=== PATIENT | female | born 1975 | race Caucasian/White ===

== ENCOUNTER → 2018-05-12 | Outpatient (CLI) | END | disposition home or self-care (01) ==

== ENCOUNTER 2018-11-23 11:01 | Outpatient (CLI) | payer OTHER ==
[~2018-11-23] VITALS: Ht 160 cm; Wt 103.0 kg
[2018-11-23 11:39] VITALS: Ht 160 cm; Wt 103.0 kg
--- NOTE | 2018-11-23 12:11 | TRIAGE ---
OB Triage Datetime Report Generated by CPN: 11/23/2018 12:10 Datetime: 11/23/2018 11:59 Maternal Assessment Level of Consciousness: Fully Conscious DTR's/Clonus: DTRs 1+ Headache: Denies Blurred Vision: No Nausea/Vomiting: Denies RUQ Epigastric Pain: Denies Facial Edema: None Labor Evaluation Monitor Mode: External Resting Tone Crary: Relaxed Heart Rate FHR Baseline Rate: 120 Monitor Mode: External US Variability: Moderate 6-25 bpm Accelerations: 15X15 Decelerations: None Category: Category I Pain Assessment Pain Scale: 0 Pain Presence: None/Denies Pain Type: N/A Pain Goal: 3 Vaginal Exam Membrane Status: Intact Datetime: 11/23/2018 11:05 Stage of : OB Triage Assessment Type: Triage Maternal Assessment Level of Consciousness: Fully Conscious DTR's/Clonus: DTRs 2+; No Clonus Headache: Denies Blurred Vision: No Respiratory Effort: Unlabored; Regular Rhythm; Equal Expansion Breath Sounds, Left: Clear and Equal Breath Sounds, Right: Clear and Equal Nausea/Vomiting: Denies RUQ Epigastric Pain: Denies Lower Extremities Edema: None Degree: None Upper Extremities Edema: None Degree: None Facial Edema: None Fall Risk Assessment History of Falling: (0) No Secondary Diagnosis: (0) No Ambulatory Aid: (0) Bedrest/Nurse Assist IV Therapy: (0) No Gait: (0) Normal/Bedrest/Immobile Mental Status: (0) Oriented to Own Ability Fall Score: 0 Fall Risk Score Definition: No Risk: No action required Datetime: 11/23/2018 10:55 Time of Arrival: 11/23/2018 10:55 EGA: 36.0 Arrived By: Ambulatory Arrived From: Home Chief Complaint: PT CAME IN FORM NST FOR EXTENDED MONITORING Movement: Present Contractions: Denies/Absent Rupture of Membranes: Denies Vaginal Discharge: Denies Recent Sexual Intercouse: Denies Abdominal Trauma: Not Applicable Additional Patient Complaints: NONE Time Provider Notified: 11/23/2018 10:55 Provider Notified: QI Initial Plan: MONITOR
== END 2018-11-23 12:01 | disposition home or self-care (01) ==
LOC: L-D 11:01 → OBT 11:01
PROVIDERS: ATTEND Obstetrics & Gynecology
DX: O24.419 Gestational diabetes mellitus in pregnancy, unspecified control (principal); Z3A.36 36 weeks gestation of pregnancy
CPT/HCPCS: G0463

== ENCOUNTER 2018-11-25 11:01 | Outpatient (CLI) | payer OTHER ==
[~2018-11-25] VITALS: Ht 160 cm; Wt 102.7 kg
[2018-11-25] MEDS ORDERED: PNV11TAB PO (11:18)
[2018-11-25 11:19] VITALS: Ht 160 cm; Wt 102.7 kg
[2018-11-25 11:20] VITALS: BP 116/67; PULSE 95; RESP 19
--- NOTE | 2018-11-25 12:26 | TRIAGE ---
OB Triage Datetime Report Generated by CPN: 11/25/2018 12:25 Datetime: 11/25/2018 11:36 Dilatation (cms): 0.0 Effacement (%): 0 Station: -3 Exam By: Arthur CLAYTON Datetime: 11/25/2018 11:30 Assessment Type: Triage Level of Consciousness: Fully Conscious DTR's/Clonus: DTRs 2+; No Clonus Headache: Denies Blurred Vision: No Respiratory Effort: Unlabored; Regular Rhythm; Equal Expansion Breath Sounds, Left: Clear and Equal Breath Sounds, Right: Clear and Equal Nausea/Vomiting: Denies RUQ Epigastric Pain: Denies Lower Extremities Edema: None Degree: None Upper Extremities Edema: None Degree: None Facial Edema: None History of Falling: (0) No Secondary Diagnosis: (0) No Ambulatory Aid: (0) Bedrest/Nurse Assist IV Therapy: (0) No Gait: (0) Normal/Bedrest/Immobile Mental Status: (0) Oriented to Own Ability Fall Score: 0 Fall Risk Score Definition: No Risk: No action required Frequency: 2-4 Monitor Mode: External Duration (sec)5469: 60-90 Quality: Mild Pattern: Normal: <= 5 Contractions in 10 Minutes Resting Tone Kincaid: Relaxed FHR Baseline Rate: 135 Monitor Mode: External US Variability: Moderate 6-25 bpm Accelerations: 15X15 Decelerations: None Category: Category I Datetime: 11/25/2018 11:29 Time of Arrival: 11/25/2018 10:59 EGA: 36.2 Arrived By: Ambulatory Arrived From: Home Chief Complaint: chest pain Movement: Present Contractions: Denies/Absent Rupture of Membranes: Denies Vaginal Bleeding: None Vaginal Discharge: Denies Recent Sexual Intercouse: Denies Abdominal Trauma: Not Applicable Patient Complaints: Other Time Provider Notified: 11/25/2018 11:40 Provider Notified: dr clark Initial Plan: nst
[2018-11-25] MEDS ORDERED: FER325 PO (14:10)
[2018-11-25] MEDS ORDERED: ACET325T33 PO (14:51)
--- NOTE | 2018-12-30 14:04 | PN ---
Triage Information Date/Time 11/25/2018 Reason for visit: Weeks of Gestation 36.2 weeks /Para Diabetes: none Hypertention: none Additional information OB Triage Triage Information Date/Time November 25, 2018 Reason for visit: Chest pain in the left side of the chest worsening with movement and bending over, denies any shortness of breath, dizziness, lightheadedness Weeks of Gestation 36 weeks and 2 days /Para 5 para 3 Diabetes: none Hypertention: none Additional information 43-year-old with IUP at 36 weeks and 2 days presents with complaint of left-sided chest pain, increased with breathing and bending over, denies any shortness of breath, dizziness lightheadedness, but denies any vaginal bleeding, contractions or leaking of fluid or decreased movement. Objective Vital Signs Date Temp Pulse Resp B/P (MAP) Pulse Ox O2 O2 Flow FiO2 Time Delivery Rate 11/25/18 97.7 79 20 127/61 97 12:32 (83) Heart Rate: 130's Heart Rate Comments Category 1 Exam General appearance: Alert and oriented x4 does not appear to be in any acute distress : Soft, gravid, fundal height consider gestational age Lungs: Clear to auscultation bilaterally CV: RRR NST: Category 1 BPP: Results/Medications Result Diagram: 11/25/18 1345 Results 24 hrs Laboratory Tests Test 11/25/18 13:45 White Blood Count 8.1 Red Blood Count 4.11 L Hemoglobin 12.5 Hematocrit 37.9 Mean Corpuscular Volume 92.2 Mean Corpuscular Hemoglobin 30.4 Mean Corpuscular Hemoglobin Concent 33.0 Red Cell Distribution Width 13.7 Platelet Count 209 Mean Platelet Volume 9.0 Immature Granulocytes % 0.700 H Neutrophils % 76.2 Lymphocytes % 15.6 Monocytes % 7.1 Eosinophils % 0.2 Basophils % 0.2 Nucleated Red Blood Cells % 0.0 Immature Granulocytes # 0.060 H Neutrophils # 6.2 Lymphocytes # 1.3 Monocytes # 0.6 Eosinophils # 0.0 Basophils # 0.0 Nucleated Red Blood Cells # 0.0 Imaging Results ROCEDURE: US OB biophysical profile. CLINICAL INDICATION: decreased movements, gestational diabetes TECHNIQUE: Multiple sonographic images of the pelvis were obtained. The images were reviewed on a PACS workstation. COMPARISON: No prior studies are available for comparison. FINDINGS: There is a single live intrauterine gestation. Cardiac activity is present with 123 beats per minute. There is a vertex presentation. The placenta is left fundal. There is no evidence of placental abruption. There is a normal amount of amniotic fluid with an GRACIE = 12.5 cm. Biophysical profile: movement 2/2 tone 2/2. breathing 2/2 GRACIE 2/2 Total 04/07 RPTAT: AA . IMPRESSION: Normal biophysical profile. Disposition: Discharge Assessment/Plan IUP at 36 weeks and 2 days Left-sided chest pain, appears to be pleuritic chest pain Increased with moving and activity and bending over and breathing No obstetrical issue Occasional rare contractions noted on the monitor. Patient has not been feeling Exam does not show any evidence of labor Patient will be discharged to emergency room for further evaluation of chest pain Discussed with the patient to have a follow-up within 24-48 hours after discharge from the emergency room labor precautions kick count and follow-up with her OB visits discussed with the patient. All questions were answered to patient's best satisfaction Copies To: Copies To: CARLOS TOLEDO MD Nov 25, 2018 14:21 Objective Heart Rate: 130's Contractions: >10 Minutes Apart Disposition: Discharge Assessment/Plan Discharged to ED CARLOS TOLEDO MD December 30, 2018 14:04
== END 2018-11-25 12:20 | disposition home or self-care (01) ==
LOC: OBT 11:01 → L-D 11:01 → OBT 12:20
PROVIDERS: ATTEND Obstetrics & Gynecology
DX: O26.893 Other specified pregnancy related conditions, third trimester (principal); O09.523 Supervision of elderly multigravida, third trimester; Z3A.36 36 weeks gestation of pregnancy
CPT/HCPCS: 76818; Z7500; G0463

== ENCOUNTER 2018-11-25 12:22 | Emergency (ER) | payer OTHER ==
[~2018-11-25] VITALS: Ht 165.1 cm; Wt 102.4 kg
[~2018-11-25 12:22] MED LIST: PNV11TAB PO
[2018-11-25 12:32] VITALS: Ht 165.1 cm; Wt 102.4 kg
[2018-11-25] MEDS ORDERED: ACETAMINOPHEN 500 MG TAB PO STA (13:40)
--- NOTE | 2018-11-25 13:43 | ERD ---
ER Documentation Chief Complaint Chief Complaint sudden CP since yesterday; cleared from L&D 36wks preg HPI 43-year-old woman complaining of bilateral medial breast pain times 3 days. She was initially cleared obstetrically and referred here for chest pain evaluation. Patient denies exertional discomfort, no fevers or chills, no cough, no calf or leg swelling. She states the pain has been constant sharp daily without obvious precipitating or alleviating factors. She has no history of blood clots. ROS All systems reviewed and are negative except as per history of present illness. Medications Home Meds Active Scripts Acetaminophen* (Tylenol*) 325 Mg Tablet, 2 TAB PO TID PRN for PAIN AND OR ELEVATED TEMP, #60 TAB Prov:ROCKY BROOKS MD 11/25/18 Reported Medications Ferrous Sulfate* (Ferrous Sulfate*) 325 Mg Tabec, 325 MG PO DAILY, TAB 11/25/18 [id number] ( 19) 1 Each Tablet, 1 TAB PO DAILY, TAB 11/25/18 Allergies Allergies: Coded Allergies: No Known Allergy (Unverified , 11/25/18) PMhx/Soc History of Surgery: No Anesthesia Reaction: No Hx Neurological Disorder: No Hx Respiratory Disorders: No Hx Cardiac Disorders: No Hx Psychiatric Problems: No Hx Miscellaneous Medical Probl: Yes (DM) Hx Alcohol Use: No Hx Substance Use: No Hx Tobacco Use: No Smoking Status: Never smoker FmHx Family History: No diabetes Physical Exam Vitals Vital Signs Date Temp Pulse Resp B/P (MAP) Pulse Ox O2 O2 Flow FiO2 Time Delivery Rate 11/25/18 78 20 122/84 100 Room Air 15:03 (97) 11/25/18 97.7 79 20 127/61 97 12:32 (83) Physical Exam GENERAL: Well-developed, well-nourished, well-hydrated, in no apparent distress, looks nontoxic in appearance CARDIAC: Regular rate and rhythm, no murmurs rubs or gallops LUNGS: Clear bilaterally no wheezing crackles or stridor ABDOMEN: Soft nontender, no guarding, gravid abdomen SKIN: Warm and dry to touch, no abrasions, contusions, or hematomas, no lacerations, no ecchymosis, no target lesions, and without ulcers EXTREMITIES: No clubbing cyanosis or edema, calves are bilaterally symmetrical, no Homans sign, no popliteal cord sign. Distal pulses equal and bilateral PSYCH: Normal affect without agitation or irritability Result Diagram: 11/25/18 1345 11/25/18 1345 Results 24 hrs Laboratory Tests Test 11/25/18 13:45 White Blood Count 8.1 10^3/ul Red Blood Count 4.11 10^6/ul Hemoglobin 12.5 g/dl Hematocrit 37.9 % Mean Corpuscular Volume 92.2 fl Mean Corpuscular Hemoglobin 30.4 pg Mean Corpuscular Hemoglobin Concent 33.0 g/dl Red Cell Distribution Width 13.7 % Platelet Count 209 10^3/UL Mean Platelet Volume 9.0 fl Immature Granulocytes % 0.700 % Neutrophils % 76.2 % Lymphocytes % 15.6 % Monocytes % 7.1 % Eosinophils % 0.2 % Basophils % 0.2 % Nucleated Red Blood Cells % 0.0 /100WBC Immature Granulocytes # 0.060 10^3/ul Neutrophils # 6.2 10^3/ul Lymphocytes # 1.3 10^3/ul Monocytes # 0.6 10^3/ul Eosinophils # 0.0 10^3/ul Basophils # 0.0 10^3/ul Nucleated Red Blood Cells # 0.0 10^3/ul Sodium Level 138 mmol/L Potassium Level 4.1 mmol/L Chloride Level 104 mmol/L Carbon Dioxide Level 20 mmol/L Anion Gap 14 Blood Urea Nitrogen 8 mg/dl Creatinine 0.47 mg/dl Est Glomerular Filtrat Rate mL/min > 60 mL/min Glucose Level 80 mg/dl Calcium Level 9.3 mg/dl Total Bilirubin 0.3 mg/dl Direct Bilirubin 0.00 mg/dl Indirect Bilirubin 0.3 mg/dl Aspartate Amino Transf (AST/SGOT) 17 IU/L Alanine Aminotransferase (ALT/SGPT) 9 IU/L Alkaline Phosphatase 103 IU/L Troponin I < 0.012 ng/ml Total Protein 6.9 g/dl Albumin 3.6 g/dl Globulin 3.30 g/dl Albumin/Globulin Ratio 1.09 Lipase 128 U/L Current Medications Medications Dose Sig/Sabrina Start Time Status Last (Trade) Ordered Route PRN Stop Time Admin Dose Reason Admin 500 mg ONCE STAT 11/25/18 DC 11/25/18 Acetaminophen PO 13:40 14:03 (Tylenol 3/28/19 13:43 Tab) Procedures/MDM IV line was established patient was placed on cardiac surgeon rhythm strip revealed a sinus rhythm at about 80 bpm with upright P and T waves. Patient was afebrile EKG performed, read by me: 79 bpm, normal sinus rhythm, normal axis, no acute ST segment changes, narrow QRS complex, with good R-wave progression in precordial leads. One AP view of the chest performed, read by me reveals no acute infiltrates, normal mediastinum, sharp costophrenic and cardiac borders, no air under the diaphragm. Otherwise unremarkable chest x-ray. I administered acetaminophen p.o. for her symptoms. CBC and electrolytes are normal, liver function tests were normal, troponin was negative. Patient has mild tenderness to touch over the medial bilateral breasts and her symptoms do not seem cardiac related so she will be discharged to follow-up with PMD and mohs surgeon. Differential diagnoses considered, included but not limited to acute coronary syndrome, pulmonary embolism, aortic dissection, abdominal aortic aneurysm, sepsis, stroke, meningitis, encephalitis, pneumonia, appendicitis, ch olecystitis, bowel obstruction, pyelonephritis, nephrolithiasis, cystitis, as well as metabolic, hematologic, and electrolyte abnormalities. As well as abscess, cellulitis, fractures, and dislocations. Patient feels much better at this time, and vital signs are normal, symptoms have improved. I did give strict instructions to return to the ED if symptoms continue or worsen, patient will otherwise follow-up with primary care physician. Patient understood instructions and agreed to plan. Disclaimer: Inadvertent spelling and grammatical errors are likely due to EHR/dictation software use and do not reflect on the overall quality of patient care. Also, please note that the electronic time recorded on this note does not necessarily reflect the actual time of the patient encounter. Departure Diagnosis: Primary Impression: Chest pain Chest pain type: unspecified Qualified Codes: R07.9 - Chest pain, unspecified Additional Impression: Third trimester Condition: ROCKY Hinton MD Nov 25, 2018 13:43
[2018-11-25] MEDS ORDERED: FER325 PO (14:10)
--- NOTE | 2018-11-25 14:21 | PN ---
Triage Information Date/Time November 25, 2018 Reason for visit: Chest pain in the left side of the chest worsening with movement and bending over, denies any shortness of breath, dizziness, lightheadedness Weeks of Gestation 36 weeks and 2 days /Para 5 para 3 Diabetes: none Hypertention: none Additional information 43-year-old with IUP at 36 weeks and 2 days presents with complaint of left-sided chest pain, increased with breathing and bending over, denies any shortness of breath, dizziness lightheadedness, but denies any vaginal bleeding, contractions or leaking of fluid or decreased movement. Objective Vital Signs Date Temp Pulse Resp B/P (MAP) Pulse Ox O2 O2 Flow FiO2 Time Delivery Rate 11/25/18 97.7 79 20 127/61 97 12:32 (83) Heart Rate: 130's Heart Rate Comments Category 1 Exam General appearance: Alert and oriented x4 does not appear to be in any acute distress : Soft, gravid, fundal height consider gestational age Lungs: Clear to auscultation bilaterally CV: RRR NST: Category 1 BPP: Results/Medications Result Diagram: 11/25/18 1345 Results 24 hrs Laboratory Tests Test 11/25/18 13:45 White Blood Count 8.1 Red Blood Count 4.11 L Hemoglobin 12.5 Hematocrit 37.9 Mean Corpuscular Volume 92.2 Mean Corpuscular Hemoglobin 30.4 Mean Corpuscular Hemoglobin Concent 33.0 Red Cell Distribution Width 13.7 Platelet Count 209 Mean Platelet Volume 9.0 Immature Granulocytes % 0.700 H Neutrophils % 76.2 Lymphocytes % 15.6 Monocytes % 7.1 Eosinophils % 0.2 Basophils % 0.2 Nucleated Red Blood Cells % 0.0 Immature Granulocytes # 0.060 H Neutrophils # 6.2 Lymphocytes # 1.3 Monocytes # 0.6 Eosinophils # 0.0 Basophils # 0.0 Nucleated Red Blood Cells # 0.0 Imaging Results ROCEDURE: US OB biophysical profile. CLINICAL INDICATION: decreased movements, gestational diabetes TECHNIQUE: Multiple sonographic images of the pelvis were obtained. The images were reviewed on a PACS workstation. COMPARISON: No prior studies are available for comparison. FINDINGS: There is a single live intrauterine gestation. Cardiac activity is present with 123 beats per minute. There is a vertex presentation. The placenta is left fundal. There is no evidence of placental abruption. There is a normal amount of amniotic fluid with an GRACIE = 12.5 cm. Biophysical profile: movement 2/2 tone 2/2. breathing 2/2 GRACIE 2/2 Total 04/07 RPTAT: AA . IMPRESSION: Normal biophysical profile. Disposition: Discharge Assessment/Plan IUP at 36 weeks and 2 days Left-sided chest pain, appears to be pleuritic chest pain Increased with moving and activity and bending over and breathing No obstetrical issue Occasional rare contractions noted on the monitor. Patient has not been feeling Exam does not show any evidence of labor Patient will be discharged to emergency room for further evaluation of chest pain Discussed with the patient to have a follow-up within 24-48 hours after discharge from the emergency room labor precautions kick count and follow-up with her OB visits dis cussed with the patient. All questions were answered to patient's best satisfaction CARLOS TOLEDO MD Nov 25, 2018 14:21
[2018-11-25] MEDS ORDERED: ACET325T33 PO (14:51)
[2018-11-25 15:03] VITALS: BP 122/84; PULSE 78; RESP 20
== END 2018-11-25 15:04 | disposition home or self-care (01) ==
LOC: E/R 12:22
DX: O99.89 Other specified diseases and conditions complicating pregnancy, childbirth and the puerperium (principal); R07.9 Chest pain, unspecified; O24.113 Pre-existing type 2 diabetes mellitus, in pregnancy, third trimester; Z3A.36 36 weeks gestation of pregnancy
CPT/HCPCS: 36415; 71045; 80053; 83690; 84484; 85025; 93005; Z7502; Z7610

== ENCOUNTER 2018-12-20 07:30 | Inpatient (IN) | payer OTHER ==
[~2018-12-20] VITALS: Ht 162.6 cm; Wt 105.4 kg
[~2018-12-20 07:30] MED LIST changes: +ACET325T33 PO; +FER325 PO
--- NOTE | 2018-12-20 08:03 | NSTRPT ---
NST Information Datetime Report Generated by CPN: 12/20/2018 08:03 Datetime: 12/17/2018 08:11 NST Information EGA: 39.3 Test Number: 8 Time on Monitor: 12/17/2018 08:26 Time off Monitor: 12/17/2018 09:01 NST Duration (Min): 35 Reason for NST: Diabetes Mellitus; Other Reason for NST Other: A1DM Test and Monitor Explained: Monitor Explained; Test Explained; Verbalized Understanding Pulse: 66 Resp: 18 SBP: 130 DBP: 76 Test Evaluation NST Interventions: None Patient States Movement: Present Contraction Frequency: x1(denies) FHR Baseline : 125 Variability: Moderate 6-25bpm Accelerations: 15X15 Decelerations: None FHR Category: Category I NST Results: Reactive Comments: To u/s. GRACIE 17.2cm. cephalic. FBS 80. Electronically Signed By E-Signature: with User ID: [id number] Datetime: 12/14/2018 08:04 NST Information EGA: 39.0 NST Duration (Min): 37 Datetime: 12/10/2018 08:14 NST Information EGA: 38.3 NST Duration (Min): 27 Datetime: 12/07/2018 10:24 NST Information EGA: 38.0 NST Duration (Min): 20 Datetime: 12/03/2018 08:16 NST Information EGA: 37.3 NST Duration (Min): 22 Datetime: 11/30/2018 08:25 NST Information EGA: 37.0 NST Duration (Min): 78 Datetime: 11/26/2018 08:03 NST Information EGA: 36.3 NST Duration (Min): 40 Datetime: 11/23/2018 08:56 NST Information EGA: 36.0 NST Duration (Min): 41
[2018-12-20 08:17] VITALS: Ht 162.6 cm; Wt 105.4 kg
[2018-12-20] MEDS ORDERED: LIDOCAINE 1% (MPF) 30 ML INJ INJ PRN (08:30)
[2018-12-20] MEDS ORDERED: BUTORPHANOL 2 MG INJ IV PRN (08:30)
[2018-12-20] MEDS ORDERED: OXYTOCIN 30 UNITS/LR 500 ML IV PRN (08:30)
[2018-12-20] MEDS ORDERED: MISOPROSTOL 200 MCG TAB PR PRN (08:30)
[2018-12-20] MEDS ORDERED: IBUPROFEN 600 MG TAB PO PRN (08:30)
[2018-12-20] MEDS ORDERED: METHYLERGONOVINE 0.2 MG INJ IM PRN (08:30)
[2018-12-20] MEDS ORDERED: CARBOPROST 250 MCG INJ IM PRN (08:30)
[2018-12-20] MEDS ORDERED: OXYTOCIN 30 UNITS/LR 500 ML IV SCH ×3 (08:30→22:30)
[2018-12-20] MEDS: LACTATED RINGER'S 1,000 ML IV SCH ×3 (09:03→21:04)
[2018-12-20] MEDS: MISOPROSTOL 50 MCG CAPSULE PO PRN ×2 (12:35→16:58)
--- NOTE | 2018-12-20 14:34 | HP ---
Date/Time of Note Date/Time of Note DATE: 12/20/18 TIME: 14:31 OB - History Hx of Present Free Text/Dictation 43-year-old female 5 para 3 AB 1 at 39 weeks and 6 days gestation admitted for elective induction of labor Last Menstrual Period: Mar 16, 2018 Estimated Due Date: Dec 21, 2018 : 5 Para: 3 Spontaneous : 1 Care: Good Care Ultrasounds: Normal mid trimester US Obstetrical Complications: Other (Constant maternal age) Medical Complications: None, Other (Positive PPD and QuantiFERON gold) Past Family/Social History * Past Medical, Surgical, Family and Obstetric Histories reviewed from chart. Blood Type: A- Rubella: immune RPR/VDRL: Negative GBS Status: Negative HBsAG: Negative OB Admission Exam Physical Exam HEENT: WNL Heart: Rhythm Normal Lungs: Clear, Equal Abdomen: WNL Extremities: Normal Reflexes: Normal Cervical Dilatation: None Effacement: 0% Station: -3 Membranes: Intact Heart Rate: 140's Accelerations: Accelerations Present Decelerations: No Decelerations Varibility: Marked Contractions on Admission: None Last 72 hourBlood Glucose Bedside Glucose - 72 Hours Test 12/20/18 13:28 Bedside Glucose 76 mg/dL (70-220) Last 72 hours Lab Results CBC & BMP 12/20/18 08:40 OB Assessment/Plan Reason for admission: induction of labor Other Assessment: Term gestation for elective induction of labor Other plan: Cytotec was used for induction of labor CHUY MATTHEW MD Dec 20, 2018 14:34
[2018-12-20] MEDS ORDERED: MINERAL OIL LIGHT 10 ML VIAL TOP PRN (22:30)
[2018-12-20] MEDS ORDERED: KETOROLAC 30 MG INJ IV STA (23:26)
--- NOTE | 2018-12-20 23:39 | LDN ---
Date/Time of Note Date/Time of Note DATE: 12/20/18 TIME: 23:37 Delivery Summary Normal spontaneous vaginal delivery of a viable over intact perineum which was done by Dr. Wisdom Weeks of Gestation 40+ weeks Placenta Delivered: Spontaneously, Intact & Complete Meconium: none Episiotomy: No Perineal laceration: 1 Laceration repair: Superficial perineal laceration was repaired with running sutures of 3-0 chromic Anesthesia type: Local Estimated blood loss: 200 Sponge & Needle done & correct: Yes All needle counts correct: Yes Any foreign bodies felt in the: No Infant Delivery Information Sex Sex: male Apgars 1 Minute: 9 5 Minute: 9 Suctioning Nose & mouth suctioned at [place]red[place]: Yes Delee suction performed: No Umbilical Cord Umbilical cord with: 3 Vessels Cord presentations: no nuchal cord Cord Blood was obtained: Yes Mother & Baby Disposition Disposition Mom & Baby to Maternity; Good: Yes (Mother and baby recovered in good condition) Mom transferred to: Other (Maternity) Baby to NICU: No CHUY MATTHEW MD Dec 20, 2018 23:39
[2018-12-21 00:45] VITALS: BP 117/70; PULSE 72; RESP 18
[2018-12-21] MEDS: LACTATED RINGER'S 1,000 ML IV* SCH ×3 (01:33→20:00)
[2018-12-21] MEDS ORDERED: ZOLPIDEM 5 MG TAB PO PRN (02:00)
[2018-12-21] MEDS ORDERED: DIBUCAINE 1% 30 GM OINT TOP PRN (02:00)
[2018-12-21] MEDS ORDERED: METHYLERGONOVINE 0.2 MG INJ IM PRN (02:00)
[2018-12-21] MEDS ORDERED: MISOPROSTOL 200 MCG TAB PR PRN (02:00)
[2018-12-21] MEDS ORDERED: WITCH HAZEL/GLYCERIN PAD PR PRN (02:00)
[2018-12-21] MEDS ORDERED: CARBOPROST 250 MCG INJ IM PRN (02:00)
[2018-12-21] MEDS ORDERED: LANOLIN HPA 1 PKT TOP PRN (02:00)
[2018-12-21] MEDS ORDERED: BENZOCAINE 20% 56 ML SPRAY TOP PRN (02:00)
[2018-12-21] MEDS ORDERED: OXYTOCIN 30 UNITS/LR 500 ML IV PRN (02:00)
[2018-12-21] MEDS ORDERED: HYDROCODONE/APAP (5/325) TAB PO PRN ×2 (02:00)
[2018-12-21 03:42] VITALS: BP 112/64; PULSE 69; RESP 18
[2018-12-21] MEDS: IBUPROFEN 600 MG TAB PO SCH ×3 (06:24→17:44)
[2018-12-21 08:57] VITALS: BP 121/59; PULSE 73; RESP 16
[2018-12-21] MEDS: MAGNESIUM HYDROXIDE 30ML CUP PO SCH (09:05)
[2018-12-21] MEDS: SENNA/DOCUSATE NA (8.6MG/50MG) TAB PO SCH (09:05)
--- NOTE | 2018-12-21 10:59 | PREAC ---
Date/Time of Note Date/Time of Note DATE: 12/21/18 TIME: 10:56 Anesthesia Eval and Record Evaluation Time Pre-Procedure Interview DATE: 12/21/18 TIME: 10:56 Age 43 Sex female NPO: 8 hrs Preoperative diagnosis elective sterilization Planned procedure bilateral tubal ligation Past Medical History Past Medical History: Includes Endo: Diabetes (diet controlled) GI: Obesity Surgery & Anesthesia Issues No known issue Meds Anticoagulation: No Beta Jessica within 24 hr: No Reason Beta Jessica not given: Pt. not on B-Jessica Active Scripts Acetaminophen* (Tylenol*) 325 Mg Tablet, 2 TAB PO TID PRN for PAIN AND OR EL EVATED TEMP, #60 TAB Prov:ROCKY BROOKS MD 11/25/18 Reported Medications Ferrous Sulfate* (Ferrous Sulfate*) 325 Mg Tabec, 325 MG PO DAILY, TAB 11/25/18 [id number] ( ) 1 Each Tablet, 1 TAB PO DAILY, TAB 11/25/18 Current Medications Lactated Ringer's 1,000 ml @ 125 mls/hr Q8H IV* Last administered on 12/21/18at 08:32; Admin Dose 125 MLS/HR; Start 12/21/18 at 01:33 Ibuprofen (Motrin) 600 mg Q6 PO Last administered on 12/21/18at 06:24; Admin Dose 600 MG; Start 12/21/18 at 06:00 Acetaminophen/ Hydrocodone Bitart ([place]ier (5/325)) 1 tab Q4H PRN PO .PAIN 1-5; Start 12/21/18 at 02:00 Acetaminophen/ Hydrocodone Bitart ([place]ier (5/325)) 2 tab Q4H PRN PO .PAIN 6-10; Start 12/21/18 at 02:00 Zolpidem Tartrate (Ambien) 5 mg QHS PRN PO .INSOMNIA; Start 12/21/18 at 02:00 Senna/Docusate Sodium (Senokot-S) 1 tab BID PO Last administered on 12/21/18at 09:05; Admin Dose 1 TAB; Start 12/21/18 at 09:00 Magnesium Hydroxide (Milk Of Mag) 30 ml Q12 PO Last administered on 12/21/18at 09:05; Admin Dose 30 ML; Start 12/21/18 at 09:00 Witch Brandi/ Glycerin (Tucks Pads) 1 pad BEDSIDE MEDICATION PRN NC .HEMORRHOID/EPISIOTOMY PAIN Last administered on 12/21/18 03:18; Admin Dose 1 PAD; Start 12/21/18 at 02:00 Benzocaine (Dermoplast Vesuvius) 1 spray BEDSIDE MEDICATION PRN TOP .HEMMORHOID/EPISIOTOMY PAIN Last administered on 12/21/18at 03:17; Admin Dose 1 SPRAY; Start 12/21/18 at 02:00 Dibucaine (Nupercainal) 1 applic BEDSIDE MEDICATION PRN TOP .HEMMORHOID/EPISIOTOMY; Start 12/21/18 at 02:00 Lanolin (Lanolin Hpa) 1 applic BEDSIDE MEDICATION PRN TOP .NIPPLES Last administered on 12/21/18at 03:17; Admin Dose 1 APPLIC; Start 12/21/18 at 02:00 Measles/Mumps/ Rubella Vaccine Live (Mmr Ii Vaccine) 0.5 ml ONCE ONCE SC* ; Start 12/22/18 at 09:00; Stop 12/22/18 at 09:01 Diphtheria/ Tetanus/Acell Pertussis (Adacel) 0.5 ml ONCE ONCE IM* ; Start 12/22/18 at 09:00; Stop 12/22/18 at 09:01 Varicella Virus Vaccine Live (Varivax Vaccine With Diluent) 1,350 unit ONCE ONCE SC* ; Start 12/22/18 at 09:00; Stop 12/22/18 at 09:01 Oxytocin/Lactated Ringer's 500 ml @ 0 mls/hr ONCE PRN IV .VAGINAL BLEEDING Last administered on 12/21/18at 03:29; Admin Dose 125 MLS/HR; Start 12/21/18 at 02:00 Methylergonovine Maleate (Methergine) 0.2 mg ONCE PRN IM .VAGINAL BLEEDING; Start 12/21/18 at 02:00 Carboprost Tromethamine (Hemabate) 250 mcg ONCE PRN IM .VAGINAL BLEEDING; Start 12/21/18 at 02:00 Misoprostol (Cytotec) 1,000 mcg ONCE PRN NC .VAGINAL BLEEDING; Start 12/21/18 at 02:00 Meds reviewed: Yes Allergies Coded Allergies: No Known Allergy (Unverified , 11/25/18) Allergies Reviewed: Yes Labs/Studies Labs Reviewed: Reviewed by anesthesiologist Result Diagram: 12/21/18 0818 Laboratory Tests 12/21/18 08:18 Blood Bank Test 12/21/18 06:00 12/21/18 08:18 Blood Product Summary Counts Antibody Screen POSITIVE Blood Type A NEGATIVE Screen NEG test: Negative Pre-procedure Exam Last vitals Vital Signs Date Temp Pulse Resp B/P (MAP) Pulse Ox O2 O2 Flow FiO2 Time Delivery Rate 12/21/18 98.8 73 16 121/59 Room Air 08:57 (79) Airway: Adequate mouth opening, Adequate thyromental dist Mallampati: Mallampati II Teeth: Normal Lung: Normal Heart: Normal ASA Physical Status ASA physical status: 2 Emergency: None Planned Anesthetic General/MAC: ETT Pre-operative Attestations Prior to commencing anesthesia and surgery, the patient was re-evaluated, there was verification of: *The patient's identity *The results of appropriate recent lab work and preoperative vital signs *The above evaluation not changing prior to induction *Anesthetic plan, risk benefits, alternative and complications discussed with patient/family; questions answered; patient/family understands, accepts and wishes to proceed. MICHELET CONTE Dec 21, 2018 10:59
[2018-12-21 12:22] VITALS: BP 133/85; PULSE 88; RESP 14
[2018-12-21 15:03] VITALS: BP 122/78; PULSE 90; RESP 16
[2018-12-21] MEDS ORDERED: BUPIVACAINE 0.25%/EPI (SDV) 30 ML INJ ONE (15:34)
--- NOTE | 2018-12-21 16:00 | PN ---
Date/Time of Note Date/Time of Note DATE: 12/21/18 TIME: 15:57 Assessment/Plan VTE Prophylaxis Risk score (from [facility] [place]0 risk: 1 SCD applied (from [facility] [place]): No SCD contraindicated: low risk/ambulating Pharmacological prophylaxis: NA/contraindicated Pharm contraindication: low risk/ambulating Lines/Catheters IV Catheter Type (from [facility]): Peripheral IV Assessment/Plan Assessment/Plan Status post vaginal delivery Desires sterilization Proceed with bilateral tubal ligation via minilaparotomy Result Diagram: 12/21/18 0818 Results 24hrs Laboratory Tests Test 12/20/18 17:23 12/20/18 21:34 12/21/18 06:18 12/21/18 08:18 Bedside Glucose 86 81 Lab Scanned Report REFERENCE LAB White Blood Count 11.8 #H Red Blood Count 3.70 L Hemoglobin 11.3 L Hematocrit 33.4 L Mean Corpuscular 90.3 Volume Mean Corpuscular 30.5 Hemoglobin Mean Corpuscular 33.8 Hemoglobin Concent Red Cell 13.4 Distribution Width Platelet Count 178 Mean Platelet 9.4 Volume Immature 0.500 H Granulocytes % Neutrophils % 77.7 H Lymphocytes % 12.6 L Monocytes % 8.7 Eosinophils % 0.2 Basophils % 0.3 Nucleated Red 0.0 Blood Cells % Immature 0.060 H Granulocytes # Neutrophils # 9.1 H Lymphocytes # 1.5 Monocytes # 1.0 H Eosinophils # 0.0 Basophils # 0.0 Nucleated Red 0.0 Blood Cells # Subjective 24 Hr Interval Summary Free Text/Dictation Has no major complaints and desires sterilization Constitutional: no complaints, improved Eyes: no complaints ENT: no complaints Respiratory: no complaints Cardiovascular: no complaints Gastrointestinal: no complaints Genitourinary: no complaints Musculoskeletal: no complaints Skin: no complaints Neurologic: no complaints Endocrine: no complaints Lymphatic: no complaints Psychological: no complaints, nl mood/affect Immunologic: no complaints Exam/Review of Systems Exam Vitals Vital Signs Date Temp Pulse Resp B/P (MAP) Pulse Ox O2 O2 Flow FiO2 Time Delivery Rate 12/21/18 98.4 90 16 122/78 Room Air 15:03 (93) Intake and Output 12/20/18 12/20/18 12/21/18 1515:00 23:00 07:00 IntakeIntake Total 800 ml 250 ml OutputOutput Total 1450 ml 1053 ml BalanceBalance 800 ml -1200 ml -1053 ml Exam Patient does not seem to be in any distress Constitutional: alert, oriented, well developed Psych: no complaints, nl mood/affect Head: normocephalic, atraumatic Eyes: nl conjunctiva, EOMI, nl lids, nl sclera, PERRL ENMT: nl external ears & nose, nl lips & teeth, nl nasal mucosa & septum Neck: supple, non-tender Respiratory: clear to auscultation, normal air movement Cardiovascular: regular rate and rhythm, nl pulses Gastrointestinal: soft, nl liver, spleen, non-tender Genitourinary - Female: uterus (Fundus is firm), other (Perineum is healing) Musculoskeletal: nl extremities to inspection, nl gait and stance Extremities: normal pulses 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, nl mental status, nl speech, nl strength Skin: nl turgor; No rash or lesions Lymph: nl lymph nodes Results Results 24hrs Laboratory Tests Test 12/20/18 17:23 12/20/18 21:34 12/21/18 06:18 12/21/18 08:18 Bedside Glucose 86 81 Lab Scanned Report REFERENCE LAB White Blood Count 11.8 #H Red Blood Count 3.70 L Hemoglobin 11.3 L Hematocrit 33.4 L Mean Corpuscular 90.3 Volume Mean Corpuscular 30.5 Hemoglobin Mean Corpuscular 33.8 Hemoglobin Concent Red Cell 13.4 Distribution Width Platelet Count 178 Mean Platelet 9.4 Volume Immature 0.500 H Granulocytes % Neutrophils % 77.7 H Lymphocytes % 12.6 L Monocytes % 8.7 Eosinophils % 0.2 Basophils % 0.3 Nucleated Red 0.0 Blood Cells % Immature 0.060 H Granulocytes # Neutrophils # 9.1 H Lymphocytes # 1.5 Monocytes # 1.0 H Eosinophils # 0.0 Basophils # 0.0 Nucleated Red 0.0 Blood Cells # Medications Medication Current Medications Lactated Ringer's 1,000 ml @ 125 mls/hr Q8H IV* Last administered on 12/21/18at 08:32; Admin Dose 125 MLS/HR; Start 12/21/18 at 01:33 Ibuprofen (Motrin) 600 mg Q6 PO Last administered on 12/21/18at 06:24; Admin Dose 600 MG; Start 12/21/18 at 06:00 Acetaminophen/ Hydrocodone Bitart ([place] (5/325)) 1 tab Q4H PRN PO .PAIN 1-5; Start 12/21/18 at 02:00 Acetaminophen/ Hydrocodone Bitart ([place] (5/325)) 2 tab Q4H PRN PO .PAIN 6-10; Start 12/21/18 at 02:00 Zolpidem Tartrate (Ambien) 5 mg QHS PRN PO .INSOMNIA; Start 12/21/18 at 02:00 Senna/Docusate Sodium (Senokot-S) 1 tab BID PO Last administered on 12/21/18at 09:05; Admin Dose 1 TAB; Start 12/21/18 at 09:00 Magnesium Hydroxide (Milk Of Mag) 30 ml Q12 PO Last administered on 12/21/18at 09:05; Admin Dose 30 ML; Start 12/21/18 at 09:00 Witch Brandi/ Glycerin (Tucks Pads) 1 pad BEDSIDE MEDICATION PRN [place] .HEMORRHOID/EPISIOTOMY PAIN Last administered on 12/21/18at 03:18; Admin Dose 1 PAD; Start 12/21/18 at 02:00 Benzocaine (Dermoplast [place]) 1 spray BEDSIDE MEDICATION PRN TOP .HEMMORHOID/EPISIOTOMY PAIN Last administered on 12/21/18at 03:17; Admin Dose 1 SPRAY; Start 12/21/18 at 02:00 Dibucaine (Nupercainal) 1 applic BEDSIDE MEDICATION PRN TOP .HEMMORHOID/EPISIOTOMY; Start 12/21/18 at 02:00 Lanolin (Lanolin Hpa) 1 applic BEDSIDE MEDICATION PRN TOP .NIPPLES Last administered on 12/21/18at 03:17; Admin Dose 1 APPLIC; Start 12/21/18 at 02:00 Measles/Mumps/ Rubella Vaccine Live (Mmr Ii Vaccine) 0.5 ml ONCE ONCE SC* ; S tart 12/22/18 at 09:00; Stop 12/22/18 at 09:01 Diphtheria/ Tetanus/Acell Pertussis (Adacel) 0.5 ml ONCE ONCE IM* ; Start 12/22/18 at 09:00; Stop 12/22/18 at 09:01 Varicella Virus Vaccine Live (Varivax Vaccine With Diluent) 1,350 unit ONCE ONCE SC* ; Start 12/22/18 at 09:00; Stop 12/22/18 at 09:01 Oxytocin/Lactated Ringer's 500 ml @ 0 mls/hr ONCE PRN IV .VAGINAL BLEEDING Last administered on 12/21/18at 03:29; Admin Dose 125 MLS/HR; Start 12/21/18 at 02:00 Methylergonovine Maleate (Methergine) 0.2 mg ONCE PRN IM .VAGINAL BLEEDING; Start 12/21/18 at 02:00 Carboprost Tromethamine (Hemabate) 250 mcg ONCE PRN IM .VAGINAL BLEEDING; Start 12/21/18 at 02:00 Misoprostol (Cytotec) 1,000 mcg ONCE PRN [place] .VAGINAL BLEEDING; Start 12/21/18 at 02:00 CHUY MATTHEW MD Dec 21, 2018 15:59
--- NOTE | 2018-12-21 16:52 | QN ---
Documentation Comment Patient refused to have tubal ligation via spinal anesthesia Decided to postpone the surgery to 6 weeks CHUY MATTHEW MD Dec 21, 2018 16:52
--- NOTE | 2018-12-21 16:53 | DS ---
Date/Time of Note Date/Time of Note Home today or next day DATE: 12/21/18 TIME: 16:52 Obstetrical Discharge Record Final Diagnosis Final Diagnosis: Term delivered Other Final Diagnosis Status post vaginal delivery Vaginal Delivery Obstetrical Delivery: Spontaneous, Laceration, Repaired Complications Augmentation: No Induction: Yes Condition on Discharge Physical Assessment Last Vitals: See nurse's notes Voiding: Yes Bowel Movement: Yes Breast: Soft, non-tender, Filling Fundus: Firm Abdomen and Incision: Fundus is firm Episiotomy: Perineum is healing well and appears clean Calf Tenderness: No Patient Condition: Good CHUY MATTHEW MD Dec 21, 2018 16:53
[2018-12-21] MEDS ORDERED: IBUP-1542 PO (17:00)
--- NOTE | 2018-12-21 17:00 | PD.PPDC ---
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 Provider Information Physician Information 43-year-old female had vaginal delivery and refused to have tubal ligation because of spinal anesthesia and decided to have the procedure be postponed to 6 weeks Diagnosis [id number] Final Diagnosis: Eeuqv3t Status post vaginal delivery Condition [id number] Patient Condition: Hfymb9c Good Diet Nncez0Pl Diet: Llznz4v Resume Regular Diet Activity/Restrictions Aweow4Lh Activity: Yseie2c Normal Activity May Shower [id number] Restrictions: Cprzv8s Nothing in the Vagina [id number] Return to Work or School: [id number] Feb 07, 2019 Follow-up Follow-up with Physician: 2, 4, Week/Weeks (In clinic) Return to clinic for [id number] OB Instructions: Idreq4c Breast Tenderness Depression Comment: Pelvic rest for 6 weeks CHUY MATTHEW MD Dec 21, 2018 17:00
[2018-12-21 20:15] VITALS: BP 138/71; PULSE 76; RESP 18
[2018-12-22] MEDS: MAGNESIUM HYDROXIDE 30ML CUP PO SCH ×2 (00:52→08:30)
[2018-12-22] MEDS: SENNA/DOCUSATE NA (8.6MG/50MG) TAB PO SCH ×2 (00:52→08:31)
[2018-12-22] MEDS: IBUPROFEN 600 MG TAB PO SCH ×3 (00:52→12:58)
[2018-12-22] MEDS: LACTATED RINGER'S 1,000 ML IV* SCH (01:33)
[2018-12-22 08:00] VITALS: BP 112/51; RESP 18
[2018-12-22] MEDS ORDERED: MEASLES,MUMPS,RUBELLA VACCINE INJ SC* ONE (09:00)
[2018-12-22] MEDS ORDERED: VARICELLA VACCINE LIVE/PF 1,350 UNIT/0.5 ML ML SC* ONE (09:00)
[2018-12-22] MEDS ORDERED: DIPHTH/TET/ACEL PERTUSS (ADULT) 0.5 ML VIAL IM* ONE (09:00)
--- NOTE | 2018-12-23 14:56 | DELSUM ---
Delivery Summary A-C Datetime Report Generated by CPN: 12/23/2018 14:56 DELIVERY PERSONNEL Label Press Operator: Xiomara Stark MATERNAL INFORMATION Delivery Anesthesia: None Medications in Delivery: OXYTOCIN 30UNITS IN 500ML LR Delivery QBL (ml): 266 Placenta Cultured: No Maternal Complications: Other Other Maternal Complications: UTERINE FIBROIDS/MYOMAS; gdm diet controlled LABOR SUMMARY EDC: 12/21/2018 00:00 No. Babies in Womb: 1 Attempted: No LABOR INFORMATION Reason for Induction: Maternal Diabetes Onset of Labor: 12/20/2018 12:30 Complete Dilatation: 12/20/2018 22:55 Cervical Ripening Agents: Cytotec @ Oxytocin: Induction Group B Beta Strep: Negative Antibiotics # of Doses: 0 Steroids Given: None Reason Steroids Not Administered: Not Applicable MEMBRANES Membranes Rupture Method: Spontaneous Rupture of Membranes: 12/20/2018 17:43 Length of Rupture (hr): 5.23 Amniotic Fluid Color: Clear Amniotic Fluid Amount: Moderate Amniotic Fluid Odor: None STAGES OF LABOR Stage 1 hr: 10 Stage 1 min: 25 Stage 2 hr: 0 Stage 2 min: 2 VAGINAL DELIVERY Episiotomy: None Laceration Extension: N/A Laceration Type: None Other Laceration: SUPERFACIAL LACERATION (Annotations: Data stored by N on behalf of user) Laceration Repair: Yes Initial Vag Sponge Count: 10 Final Vag Sponge Count: 10 Initial Vag Sharps Count: 1 Final Vag Sharps Count: 2 Sponge Count Correct: Yes; Vaginal Sweep Performed BABY A INFORMATION Delivery Date/Time: 12/20/2018 22:57 Method of Delivery: Vaginal Born in Route : No : N/A Forceps: N/A Vacuum Extraction: N/A Shoulder Dystocia : N/A SHOULDER DYSTOCIA BABY A Infant Delivery Date/Time: 12/20/2018 22:57 PRESENTATION/POSITION BABY A Presentation: Cephalic Cephalic Presentation: Vertex Vertex Position: Left Occipital Anterior Breech Presentation: N/A PLACENTA INFORMATION BABY A Placenta Method of Delivery: Spontaneous SCORES BABY A Heart Rate 1 min: >100 bpm Resp Effort 1 min: Good Cry Reflex Irritability 1 min: Cough/Sneeze/Pulls Away Muscle Tone 1 min: Active Motion Color 1 min: Body [place], Extremit Blue Resuscitation Effort 1 min: Tactile Stimulation SCORE 1 MIN: 9 Heart Rate 5 min: >100 bpm Resp Effort 5 min: Good Cry Reflex Irritability 5 min: Cough/Sneeze/Pulls Away Muscle Tone 5 min: Active Motion Color 5 min: Body [place], Extremit Blue Resuscitation Effort 5 min: Tactile Stimulation SCORE 5 MIN: 9 INFORMATION BABY A Gestational Age at Delivery: 39.6 Gestational Status: Full Term- 39- 40.6 Weeks Infant Outcome : Liveborn Condition : Stable Infant Sex: Male IDENTIFICATION/MEDS BABY A ID Band Number: [id number] ID Band Location: Right Leg; Left Arm Sensor Applied: Yes Sensor Number: [id number] Sensor Location : Cord Clamp Vitamin K Given : Not Given Erythromycin Given: Not Given WEIGHT/LENGTH BABY A Infant Birthweight (gm): 3770 Infant Weight (lb): 8 Weight (oz): 5 Infant Length (in): 20.00 Infant Length (cm): 50.80 CORD INFORMATION BABY A No. Cord Vessels: 3 Nuchal Cord : N/A Cord Blood Taken: Yes Banking/Donate Info: NONE Infant Suction: Mouth; Nose ASSESSMENT BABY A Complications: Multiple Variable Decels Physical Findings at Delivery: Within Normal Limits Respirations: Appears Normal Apron Cleaner/ALS Called : No Care By: MANDY Yao RN Transferred To: Remains with Mother
== END 2018-12-22 14:35 | disposition home or self-care (01) | DRG 807 ==
LOC: L-D 08:00 → PP1 12-21 00:50
PROVIDERS: ADMIT Obstetrics & Gynecology; ATTEND Obstetrics & Gynecology
PROC: 0HQ9XZZ Repair Perineum Skin, External Approach (ICD-10-PCS; 2018-12-20)
PROC: 10E0XZZ Delivery of Products of Conception, External Approach (ICD-10-PCS; principal; 2018-12-20 07:30)
DX: O70.0 First degree perineal laceration during delivery (principal); O24.420 Gestational diabetes mellitus in childbirth, diet controlled; Z37.0 Single live birth; Z3A.40 40 weeks gestation of pregnancy; Z30.2 Encounter for sterilization; Z53.29 Procedure and treatment not carried out because of patient's decision for other reasons; Z23 Encounter for immunization
CPT/HCPCS: 76815; 82962; 85025; 85610; 85730; 86592; 86850; 86870; 86885; 86900; 86901; 90716; J1885; J2590; J2790; J7120